=== PATIENT | male | born 1990 | race Caucasian/White ===

== ENCOUNTER 2016-09-19 02:55 | Emergency (ER) | payer OTHER ==
[~2016-09-19] VITALS: Ht 180.3 cm; Wt 72.6 kg
[~2016-09-19 02:55] MED LIST: ONDA8ODT2 PO; SULF1TAB12 PO
[2016-09-19 03:09] VITALS: BP 135/62
--- NOTE | 2016-09-19 03:10 | NUR ---
Patient ambulated to bed 08.
--- NOTE | 2016-09-19 03:25 | NUR ---
Note antonia in EDM - 09/19/16 at 0423 by KENNETH 26 Y/O M W/C/O URINARY RETENTION X 1 DAY S/P ORCHIECTOMY, ON , RIPPED OFF ON SUNDAY NIGHT. PT STATES HAS BEING ABLE TO URINATE X LAST SUNDAY. PT HAS A BERKOWITZ IN PLACE D/T PREVIOUS SURGERY. STATES IS HAVING SLIGHTLY BLEEDING FROM PENIS. JENNYFER CARTER MADE AWARE.
--- NOTE | 2016-09-19 03:25 | NUR ---
26 Y/O M W/C/O URINARY RETENTION X 1 DAY S/P ORCHIECTOMY, ON / , RIPPED OFF ON SUNDAY NIGHT. PT STATES HAS BEING ABLE TO URINATE X LAST SUNDAY. PT HAD A BERKOWITZ IN PLACE D/T SURGERY. CATEHRER NOT PRESENT ANYMORE. STATES IS HAVING SLIGHTLY BLEEDING FROM PENIS. ER MADE AWARE.
[2016-09-19] MEDS ORDERED: ONDANSETRON 4 MG/2 ML VIAL IVP ONE (03:50)
[2016-09-19] MEDS ORDERED: HYDROmorphone 1 MG/ML AMP IVP ONE ×2 (03:50→04:40)
[2016-09-19] MEDS ORDERED: diphenhydrAMINE 50 MG/ML VIAL IVP ONE (04:40)
--- NOTE | 2016-09-19 04:55 | NUR ---
BERKOWITZ CATH 16 FR INSERTED. PT TOLERATED WELL.
--- NOTE | 2016-09-19 04:58 | NUR ---
600 ML OUTPUT IN BERKOWITZ NOTED. URINE ORANGE, CONCENTRATED, AND CLOUDY. JENNYFER CARTER MADE AWARE. URINE COLLECTED FOR URINALYSIS.
--- NOTE | 2016-09-19 05:29 | NUR ---
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 WILL CONT TO MONITOR.
[2016-09-19 05:35] LABS: APPEARANCE,URINE CLOUDY (CLEAR); BILIRUBIN,URINE NEGATIVE (NEGATIVE); BLOOD, URINE TRACE-I (NEGATIVE); COLOR,URINE YELLOW (YELLOW); LEUKOCYTE ESTERASE ,URINE 2+ (NEGATIVE); NITRITE, URINE POSITIVE (NEGATIVE); PROTEIN,URINE 1+ (NEGATIVE); UGLUCOSE NEGATIVE (NEGATIVE)
[2016-09-19 05:53] LABS: BACTERIA,URINE 4+ /HPF (None Seen); RBC,URINE NONE SEEN /HPF (0-5); SQUAMOUS EPITHELIAL CELL,UR None Seen /LPF (0-3 (FEW)); WBC,URINE TOO MANY TO COUNT /HPF (0-5)
[2016-09-19] MEDS ORDERED: NACL 0.9% 1,000 ML IV ONE (06:05)
[2016-09-19] MEDS ORDERED: cefTRIAXone 1,000 MG VIAL ONE (06:11)
--- NOTE | 2016-09-19 06:36 | NUR ---
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 ER MD MADE AWARE OF VS.
--- NOTE | 2016-09-19 06:58 | NUR ---
PT WILL BE DISCHARGE WITH A BERKOWITZ CATH HOME D/T URINARY RETENTION.
[2016-09-19 07:00] VITALS: BP 137/78
--- NOTE | 2016-09-19 07:00 | NUR ---
Patient discharged with v/s stable. Written and verbal after care instructions given and explained. Patient alert, oriented and verbalized understanding of instructions. Ambulatory with steady gait. All questions addressed prior to discharge. ID band removed. Patient advised to follow up with PMD IN 2-3 DAYS OR RETURN TO ER IF CONDITION WORSENS. Rx of MACRODANTIN given. Patient educated on indication of medication including possible reaction and side effects. Opportunity to ask questions provided and answered.
== END 2016-09-19 07:37 | disposition home or self-care (01) ==
LOC: MED 02:55
DX: N39.0 Urinary tract infection, site not specified (principal); Z88.8 Allergy status to other drugs, medicaments and biological substances
CPT/HCPCS: 81001; 87086; 96365; 96375; 96376; 99284; J0696; J1170; J1200; J2405; J7030; J7060